=== PATIENT | male | born 1990 | race Caucasian/White ===

== ENCOUNTER 2021-04-19 15:24 | Emergency (ER) | payer SELFPAY ==
--- NOTE | 2021-04-19 15:30 | ED.SKABFB ---
HPI - Skin/Abscess/Foreign Bdy General Chief complaint: Skin/Abscess/Foreign Body Stated complaint: Cyst Time Seen by Provider: 04/19/21 15:30 Source: patient and RN notes reviewed History of Present Illness HPI narrative: Patient is a 30-year-old male who presents the urgent care with his spouse with complaints of an abscess to the left groin. Patient states he noticed it approximately 5 days ago and it started to drain last night. Patient also reports of recurrent abscesses to the buttocks and he has had surgery in the past for removal of pilonidal cyst. Patient states that he has not had any fevers, nausea, vomiting. Reports that the areas on the buttocks have improved greatly and are just slightly tender to touch. Denies of any use of [id number] medication for his symptoms. No other acute complaints. No acute distress noted. Patient aware of the plan of care. Some parts of this dictation were generated by voice recognition software and may contain typographical and/or grammatical inaccuracies. Related Data Allergies Allergy/AdvReac Type Severity Reaction Status Date / Time No Known Allergies Allergy Verified 04/19/21 15:45 Review of Systems Review of Systems: CONSTITUTIONAL: Denies fever, chills, or sweats. EYES: Denies visual changes, redness, or discharge. ENT: Denies rhinorrhea, congestion, sore throat, or otalgia. CARDIOVASCULAR: Denies chest pain, palpitations, or edema. RESPIRATORY: Denies cough or dyspnea. GASTROINTESTINAL: Denies abdominal pain, nausea, vomiting, or diarrhea. GENITOURINARY: Denies dysuria or hematuria. SKIN: Reports of an open abscess to the left groin and an abscess to the left and right buttocks MUSCULOSKELETAL: Denies back pain, joint pain, or myalgia. NEUROLOGIC: Denies headache, numbness, or weakness. All other systems reviewed are negative, except as documented in HPI. PMFSH Comments At the time of my signature, I reviewed and agree with the nursing past medical, surgical, social, and family history. There is no relevant family history pertinent to the patient complaint. Exam Narrative: GENERAL: This is a well-nourished, well-developed patient, in no apparent distress. HEAD: normocephalic, atraumatic. EYES: PERRL. Sclera clear/white. Vision is grossly intact. EARS: External ears normal NOSE: External nose normal with no obvious nasal discharge, nares without redness, no rhinorrhea. THROAT: Mucous membranes moist NECK: Neck supple CARDIOVASCULAR: Regular rate and rhythm without murmurs, gallops, or rubs. RESPIRATORY: Clear to auscultation. Breath sounds equal bilaterally. No wheezes, rales, or rhonchi. SKIN: Draining left groin abscess measuring 2 x 3 area of erythema/firmness. 1 cm abscess to the left buttocks and 1 cm abscess to the right buttocks without drainage NEURO: awake, alert, and oriented to person, place and time. There were no obvious focal neurologic abnormalities. EXTREMITIES: No clubbing, cyanosis, or edema. Course Vital Signs Vital signs: Vital Signs Temperature 99.1 F 04/19/21 15:34 Pulse Rate 98 04/19/21 15:34 Respiratory Rate 20 04/19/21 15:34 Blood Pressure 128/67 04/19/21 15:34 Pulse Oximetry 100 04/19/21 15:34 Temperature 99.1 F 04/19/21 15:34 Pulse Rate 98 04/19/21 15:34 Respiratory Rate 20 04/19/21 15:34 Blood Pressure 128/67 04/19/21 15:34 Pulse Oximetry 100 04/19/21 15:34 Reviewed MDM - Skin/Abscess/Foreign Bdy MDM Narrative Medical decision making narrative: Advised the patient to keep the wound very clean with plain Dial soap and water and apply the prescription cream to the affected area approximately 2 to 3 days. Complete the oral antibiotic regimen as prescribed. Be sure to eat and drink with the medication. May use warm compress/Tylenol/ibuprofen as needed for pain and comfort. Follow-up with your PCP within 2 to 5 days or for worsening symptoms or failure to improve. Differential Diagnosis Differentia
[2021-04-19 15:34] VITALS: BP 128/67; PULSE 98; RESP 20; TEMP 37.3; O2SAT 100
== END 2021-04-19 15:50 | disposition home or self-care (01) ==
PROVIDERS: Emergency Provider Nurse Practitioner Family
DX: L02.214 Cutaneous abscess of groin (principal); L02.31 Cutaneous abscess of buttock
CPT/HCPCS: 99213; G0463